=== PATIENT | female | born 1985 | race Caucasian/White ===

== ENCOUNTER 2017-04-18 13:09 | Emergency (ER) | payer MEDICAID ==
[~2017-04-18] VITALS: Ht 149.9 cm; Wt 69.5 kg
[~2017-04-18 13:09] MED LIST: PREN-39 PO; PREN1TAB17 PO
[2017-04-18 13:11] VITALS: Ht 149.9 cm; Wt 69.5 kg
[2017-04-18] MEDS ORDERED: IBUPROFEN 600 MG TAB PO ONE (13:30)
[2017-04-18 13:43] LABS: ADD UMIC NO; UR ASCORBIC ACID NEGATIVE (NEGATIVE); UR BILIRUBIN (Dip) NEGATIVE (NEGATIVE); UR BLOOD (Dip) NEGATIVE (NEGATIVE); UR CLARITY CLEAR (CLEAR); UR COLOR YELLOW (YELLOW); UR GLUCOSE (Dip) NEGATIVE (NEGATIVE); UR KETONES (Dip) NEGATIVE (NEGATIVE); UR LEUKOCYTE ESTERASE (Dip) NEGATIVE Leu/ul (NEGATIVE); UR NITRITE (Dip) NEGATIVE (NEGATIVE); UR SPECIFIC GRAVITY (Dip) 1.017 (1.003-1.030); UR TOTAL PROTEIN (Dip) NEGATIVE (NEGATIVE); UR UROBILINOGEN (Dip) NEGATIVE (NEGATIVE)
--- NOTE | 2017-04-18 13:46 | ERD ---
ER Documentation Chief Complaint Date/Time DATE: 04/18/17 TIME: 13:43 Chief Complaint painfull burning urination for past week HPI This is a 32-year-old female who presents the emergency department today complaining of pain with urination for the past 5 days and some lower pelvic pain.. States that she took Tylenol yesterday. States that she also has some right-sided back pain. She vomited one time yesterday. denies any fevers or chills. Denies vaginal bleeding. Patient indicated that she does have an IUD and it has caused her pain in the past but her doctor has not removed it. ROS All systems reviewed and are negative except as per history of present illness. Medications Home Meds Reported Medications Vit-Iron Fumarate-FA ( Tablet) 1 Each Tablet, 1 EACH PO DAILY 04/19/13 Vits W-Ca,Fe,Fa(<1MG) ( Vitamins) 1 Tab Tablet, 1 TAB PO DAILY 03/22/13 Allergies Allergies: Coded Allergies: No Allergy Information Available (Unverified Allergy, Unknown, 03/14/11) Uncoded Allergies: NKDA (Allergy, 03/22/13) Physical Exam Vitals Vital Signs Date Time Temp Pulse Resp B/P Pulse Ox O2 Delivery O2 Flow Rate FiO2 04/18/17 13:11 98.6 78 18 111/59 99 Physical Exam Const: obese, NAD Head: Atraumatic Eyes: Normal Conjunctiva ENT: Normal External Ears, Nose and Mouth. Neck: Full range of motion..~ No meningismus. Resp: Clear to auscultation bilaterally Cardio: Regular rate and rhythm, no murmurs Abd: Soft, suprapubic tenderness non distended. Normal bowel sounds. No tenderness at McBurney's. Skin: No petechiae or rashes Back: No midline tenderness. Right sided paraspinal tenderness. No CVA tenderness. Ext: No cyanosis, or edema Neur: Awake and alert Psych: Normal Mood and Affect Results 24 hrs Laboratory Tests Test 04/18/17 13:31 Urine Color YELLOW Urine Clarity CLEAR Urine pH 5.0 Urine Specific [place] 1.017 Urine Ketones NEGATIVEmg/dL Urine Nitrite NEGATIVEmg/dL Urine Bilirubin NEGATIVEmg/dL Urine Urobilinogen NEGATIVEmg/dL Urine Leukocyte Esterase NEGATIVELeu/ul Urine Hemoglobin NEGATIVEmg/dL Urine Glucose NEGATIVEmg/dL Urine Total Protein NEGATIVEmg/dl Current Medications Medications (Trade) Dose Ordered Sig/Hill Route PRN Reason Start Time Stop Time Status Last Admin Dose Admin Ibuprofen (Motrin) 600 mg ONCE ONCE PO 04/18/17 13:30 04/18/17 13:31 DC 04/18/17 13:45 Procedures/MDM This is a 32-year-old female who presents the emergency department today complaining of burning and pain with urination for the past 5 days as well as some lower pelvic pain. Given this I did obtain a UA and pelvic ultrasound. UA negative for infection or hematuria. Patient for pyelonephritis or nephrolithiasis. Urine was sent for gonorrhea and chlamydia. test is negative US was pending at time of signout to Sabina Rios NP Symptoms at this time is consistent with pelvic pain and dysuria. Patient is afebrile and otherwise well-appearing. She has no tenderness at McBurney's. I have low suspicion for acute surgical abdomen. Patient was given ibuprofen here in the emergency department. She is walking around in no acute distress. She will be given a prescription for Naprosyn and Tylenol for home. At this time the patient is stable for discharge and outpatient management. Patient should follow up with their PCP in the next 1-2 days. They may return to the emergency department sooner for any persistent or worsening of symptoms. Patient understood and agreed with the plan. Departure Diagnosis: Primary Impression: Pelvic pain Additional Impression: Dysuria Condition: MERVAT Perez PA-C Apr 18, 2017 13:46
[2017-04-18] MEDS ORDERED: NAPR-260 PO (15:44)
[2017-04-18] MEDS ORDERED: ACET500C5 PO (15:45)
[2017-04-18] MEDS ORDERED: PHEN-538 PO (15:45)
--- NOTE | 2017-04-18 15:50 | RADRPT ---
PROCEDURE: US Pelvis. CLINICAL INDICATION: Pelvic pain. TECHNIQUE: The pelvis was evaluated with transabdominal and transvaginal sonography in the axial a nd sagittal planes. COMPARISON: No prior study is available for comparison. FINDINGS: Uterus: 9.6 x 5.4 x 5.6 cm. Endometrium: 15.7 mm. Right ovary: 3.5 x 2.6 x 3.4 cm. Left ovary: 3.1 x 2.3 x 2.6 cm. Uterine masses: None. An IUD is visualized in the right lateral myometrium. Ovarian masses: None. Color Doppler and pulsed Doppler sonography demonstrate normal flow to the ova jessica. Other pelvic masses: None. Free fluid: None. IMPRESSION: 1. IUD in the right lateral myometrium. 2. Otherwise normal pelvic ultrasound. RPTAT: QQ .Marcelino Lerma MD, Date Time Electronically viewed and signed by .Marcelino Lerma MD, on 04/18/2017 15:50 .R/
--- NOTE | 2017-04-18 16:55 | EN ---
Date/Time of Note Date/Time of Note DATE: 04/18/17 TIME: 16:52 ER Progress Note Patient sent out to me by CONCHITA Bond pending pelvic ultrasound results. PROCEDURE: US Pelvis. CLINICAL INDICATION: Pelvic pain. TECHNIQUE: The pelvis was evaluated with transabdominal and transvaginal sonography in the axial and sagittal planes. COMPARISON: No prior study is available for comparison. FINDINGS: Uterus: 9.6 x 5.4 x 5.6 cm. Endometrium: 15.7 mm. Right ovary: 3.5 x 2.6 x 3.4 cm. Left ovary: 3.1 x 2.3 x 2.6 cm. Uterine masses: None. An IUD is visualized in the right lateral myometrium. Ovarian masses: None. Color Doppler and pulsed Doppler sonography demonstrate normal flow to the ovaries. Other pelvic masses: None. Free fluid: None. IMPRESSION: 1. IUD in the right lateral myometrium. 2. Otherwise normal pelvic ultrasound. RPTAT: QQ .Marcelino Lerma MD, MD Date Time Electronically viewed and signed by .Marcelino Lerma MD, MD on 04/18/2017 15:50 .R/ CC: MERVAT CAI PA-C I discussed the ultrasound results with the patient. Patient stated that the IUD is causing her a lot of pain, and her PCP refused to remove the IUD. She would prefer to have IUD removed here today. I attempted to room IUD, but the string is not visible through the cervix, likely has retreated into the uterus. External genitalia without lesions or masses. Vaginal vault clear. Copious clear and white thick discharge noted in the cervix. Cervix normal, no cervical motion tenderness noted. Uterus nontender and normal size. No adnexal tenderness or masses noted. Advised patient that I am unable to remove the IUD due to lack of strength. She will need to see a hydraulic jack adjuster for IUD removal. Patient given referral to [facility] referral list. Patient is discharged per CONCHITA Bond's instructions. Condition at time discharge: Stable. Addendum: Patient informed me at the time discharge that she was sent here by Sandra Hayes for IUD removal. Sandra Hayes placed the IUD for her, but they could not remove the IUD. She did not tell this to the initial provider. Again I tell patient that she will need to follow-up with a hydraulic jack adjuster for IUD removal. GM NEGRON. EMANUEL Apr 18, 2017 16:55
== END 2017-04-18 17:37 | disposition home or self-care (01) ==
LOC: FTE 13:09
DX: R10.2 Pelvic and perineal pain (principal)
CPT/HCPCS: 76830; 76856; 81003; 87591; Z7502; Z7610

== ENCOUNTER 2017-08-14 16:48 | Emergency (ER) | END 2017-08-14 20:52 | disposition home or self-care (01) ==